=== PATIENT | male | born 1980 | race African-American/Black ===

== ENCOUNTER 2016-06-06 10:41 | Emergency (ER) | payer MEDICAID ==
[2016-06-06 10:50] VITALS: BP 136/70
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
== END 2016-06-06 11:26 | disposition home or self-care (01) ==
LOC: UCEAST 10:41
DX: L72.9 Follicular cyst of the skin and subcutaneous tissue, unspecified (principal); Z88.0 Allergy status to penicillin; F12.90 Cannabis use, unspecified, uncomplicated; F17.210 Nicotine dependence, cigarettes, uncomplicated
CPT/HCPCS: 99211; G0463

== ENCOUNTER 2016-11-13 12:16 | Emergency (ER) | payer MEDICAID, OTHER ==
[2016-11-13 12:20] VITALS: BP 126/88
--- NOTE | 2016-11-13 13:54 | UC ---
Back Pain HPI - HPI Summary HPI Summary: This is an otherwise healthy 36 yo male who presents with c/o back pain. Symptoms started 3 days ago and have become progressively worse. He does not recall an injury or other trauma. 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 No associated abd pain, n/v. No urinary symptoms. Some radiation of the pain down his R leg. No numbness, tingling or weakness. No incontinence. No h/o similar symptoms. He has been taking a large amount of NSAIDs. Pain has been interfering with his ability to sleep. - History of Current Complaint Chief Complaint: UCBackPain Stated Complaint: BACK PAIN - Allergies/Home Medications Allergies/Adverse Reactions: Allergies Allergy/AdvReac Type Severity Reaction Status Date / Time Penicillins Allergy Unknown Unknown Verified 03/17/12 04:33 Reaction Details PMH/Surg Hx/FS Hx/Imm Hx Previously Healthy: Yes Other History Of: Negative For: Anticoagulant Therapy - Surgical History Surgical History: None - Family History Known Family History: Positive: Hypertension - Social History Alcohol Use: Occasionally Substance Use Type: Marijuana Substance Use Comment - Amount & Last Used: daily Smoking Status (MU): Former Smoker Type: Cigarettes Review of Systems Constitutional: Negative Skin: Negative Eyes: Negative ENT: Negative Respiratory: Negative Cardiovascular: Negative Gastrointestinal: Negative Genitourinary: Negative Motor: Decreased ROM Neurovascular: Negative Musculoskeletal: Myalgia Neurological: Negative Psychological: Negative All Other Systems Reviewed And Are Negative: Yes Physical Exam Triage Information Reviewed: Yes Appearance: Pain Distress - mild Vital Signs: Initial Vital Signs Temp 99.5 F 11/13/16 12:18 Pulse 100 11/13/16 12:18 Resp 20 11/13/16 12:18 BP 126/88 11/13/16 12:18 Pulse Ox 100 11/13/16 12:18 Vital Signs Reviewed: Yes Respiratory Exam: Normal Respiratory: Positive: Chest non-tender, Lungs clear, Normal breath sounds. Negative: Crackles, Rhonchi, Wheezing Cardiovascular: Positive: RRR, No Murmur Abdomen Description: Positive: Nontender. Negative: Soft, CVA Tenderness (R), CVA Tenderness (L) Musculoskeletal: Positive: No Edema, Other: - TTP over R paraspinal musculature Neurological: Positive: Other: - strength 5/5, sensation intact Back Pain Course/Dx - Course Course Of Treatment: This is an otherwise healthy 36 yo male with c/o back pain without associated trauma. No neurologic deficits. Treat for back strain. - Differential Dx/Diagnosis Provider Diagnoses: Back strain Discharge - Discharge Plan Condition: Stable Disposition: HOME Prescriptions: Cyclobenzaprine TAB* [Flexeril 10 MG TAB*] 10 mg PO TID PRN #30 tab PRN Reason: muscle pain/spasm Hydrocodone-Acetaminophen [Vicodin 5-300 mg] 1 - 2 tab PO Q4H PRN #20 tab MDD 10 tabs PRN Reason: back pain Patient Education Materials: Low Back Strain (ED), Lower Back Exercises (ED) Forms: *Work Release Referrals: No Primary Care Phys,NOPCP [Primary Care Provider] - Additional Instructions: Activity: as tolerated Instructions: 1. Start gentle stretches 2. Use pain and muscle relaxant medications as directed (do not combine with alcohol) 3. Consider massage or chiropractor visit
== END 2016-11-13 13:50 | disposition home or self-care (01) ==
LOC: UCEAST 12:16
DX: S39.012A Strain of muscle, fascia and tendon of lower back, initial encounter (principal); Z87.891 Personal history of nicotine dependence
CPT/HCPCS: 81003; 99212; G0463

== ENCOUNTER 2017-06-25 20:44 | Emergency (ER) | payer OTHER ==
[2017-06-25 21:11] VITALS: BP 139/84
[2017-06-25] MEDS ORDERED: BSS OPTH.SOL* BTL ONE (21:16)
[2017-06-25] MEDS ORDERED: Tetracaine 0.5% OPTH.SOL 4 ML* 1 DROP BTL ONE (21:16)
[2017-06-25] MEDS ORDERED: Fluorescein Sod TOPICAL 0.6* 0.6 MG TEST OPHTHALMIC ONE (21:16)
[2017-06-25] MEDS ORDERED: Tetracaine 0.5% OPTH.SOL 4 ML* 1 DROP BTL LEFT EYE ONE (21:32)
[2017-06-25] MEDS ORDERED: Fluorescein Sodium TOPICAL* 1 MG TEST OPHTHALMIC ONE (21:33)
[2017-06-25] MEDS ORDERED: Tetanus-Diptheria Toxoids* 0.5 ML SYRINGE IM ONE (21:34)
[2017-06-25] MEDS ORDERED: Tetan/Diph/Pertus SYR(Tdap)* 0.5 ML SYR(BOOSTRIX) use SYR IM ONE ×2 (21:57→21:58)
[2017-06-25] MEDS ORDERED: Ciprofloxacin 0.3% OPTH.SOL* 2.5 ML BTL BOTH EYES ONE (22:09)
--- NOTE | 2017-06-25 22:38 | UC ---
Eye Complaint HPI - HPI Summary HPI Summary: 37 year old male here with FB sensation in eye. 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 He had his glasses on but reports it went to his eye around the glasses. No vision change. No other injury. Unknown last tetanus. - History of Current Complaint Chief Complaint: UCEye Stated Complaint: EYE COMPLAINT Time Seen by Provider: 06/25/17 21:17 Hx Obtained From: Patient Onset/Duration: Sudden Onset Timing: Constant Severity Initially: Mild Severity Currently: Mild Pain Intensity: 7 Location of Injury: Conjunctiva Character: Sharp Alleviating Factor(s): Nothing Associated Signs And Symptoms: Positive: Negative - Allergies/Home Medications Allergies/Adverse Reactions: Allergies Allergy/AdvReac Type Severity Reaction Status Date / Time Penicillins Allergy unk Verified 06/25/17 21:13 PMH/Surg Hx/FS Hx/Imm Hx Previously Healthy: No Other History Of: Negative For: Anticoagulant Therapy - Surgical History Surgical History: None - Family History Known Family History: Positive: Hypertension - Social History Alcohol Use: Occasionally Substance Use Type: Marijuana Substance Use Comment - Amount & Last Used: daily Smoking Status (MU): Former Smoker Type: Cigarettes Review of Systems Constitutional: Negative Skin: Negative Eyes: Negative ENT: Negative Respiratory: Negative Cardiovascular: Negative Gastrointestinal: Negative Genitourinary: Negative Motor: Negative Neurovascular: Negative Musculoskeletal: Negative Neurological: Negative Psychological: Negative All Other Systems Reviewed And Are Negative: Yes Physical Exam Triage Information Reviewed: Yes Appearance: Well-Appearing, No Pain Distress Vital Signs: Initial Vital Signs Temp 36.6 C 06/25/17 21:09 Pulse 97 06/25/17 21:09 Resp 16 06/25/17 21:09 BP 139/84 06/25/17 21:09 Pulse Ox 97 06/25/17 21:09 Vital Signs Reviewed: Yes Eyes: Positive: Conjunctiva Inflamed - bilateral eye injection FB visulaized over cornea of right eye with possible metal ring negtive slit lamp, Other: - 20 /20 on both eyes ENT Exam: Normal Neck exam: Normal Neurological Exam: Normal Psychological Exam: Normal Skin Exam: Normal Procedures - Eye Procedure Eye FB Removal: removal w/ cotton swab Eye Irrigated w/ Saline (ccs): 500 Antibiotic Ointment/Drps Admin: right eye Eye Complaint Course/Dx - Differential Dx/Diagnosis Differential Diagnosis/HQI/PQRI: Conjunctivitis, Corneal Abrasion, Penetrating Injury Provider Diagnoses: FB in eye. Removed with cotton swab. Both eyes irrigated and patient felt better. Since its a metal penetrating injury to the eye, ordered tetanus. Patient instructed to follow up with optho in the next 1-2 days. Opthalmic cipro given here and rx sent. Discharge - Discharge Plan Condition: Good Disposition: HOME Prescriptions: Ciprofloxacin 0.3% OPTH.NASIR* [Cipro 0.3% Opth*] 1 drop RIGHT EYE Q1H #1 btl Patient Education Materials: Corneal Abrasion (ED) Forms: *Work Release Referrals: No Primary Care Phys,NOPCP [Primary Care Provider] - Tyshawn Link MD [Medical Doctor] - Matty Forbes [Medical Doctor] - Additional Instructions: Instill 2 drops into affected eye every 15 minutes for the first 6 hours, then 2 drops into the affected eye every 30 minutes for the remainder of the first day. On day 2, instill 2 drops into the affected eye hourly. On days 3-14, instill 2 drops into affected eye every 4 hours. Treatment may continue after day 14 if re-epithelialization has not occurred.Follow up with an dry cleaning counter clerk in 2-3 days.
== END 2017-06-25 22:41 | disposition home or self-care (01) ==
LOC: UCEAST 20:44
DX: T15.01XA Foreign body in cornea, right eye, initial encounter (principal); X58.XXXA Exposure to other specified factors, initial encounter; Y93.89 Activity, other specified; Y92.9 Unspecified place or not applicable; Z23 Encounter for immunization; Z88.0 Allergy status to penicillin; Z87.891 Personal history of nicotine dependence
CPT/HCPCS: 65220; 90471; 90715; 99213; A9270-GY; G0463

== ENCOUNTER 2018-02-22 03:35 | Emergency (ER) | payer OTHER ==
[2018-02-22] MEDS ORDERED: Haloperidol INJ IV/IM* 5 MG/ML AMP IM ONE (03:39)
[2018-02-22] MEDS ORDERED: LORazepam INJ* 2 MG/ML 1 ML VIAL IM ONE (03:39)
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
[2018-02-22 09:32] VITALS: BP 124/79
== END 2018-02-22 09:32 | disposition home or self-care (01) ==
LOC: ED 03:35
DX: S51.811A Laceration without foreign body of right forearm, initial encounter (principal); W25.XXXA Contact with sharp glass, initial encounter; Y93.89 Activity, other specified; Y92.009 Unspecified place in unspecified non-institutional (private) residence as the place of occurrence of the external cause; Z88.0 Allergy status to penicillin; Z87.891 Personal history of nicotine dependence; F10.129 Alcohol abuse with intoxication, unspecified
CPT/HCPCS: 12002; 96372; 99283; J1630; J2060

== ENCOUNTER → 2018-02-24 18:26 | Emergency (ER) | payer OTHER ==
--- NOTE | 2018-02-24 19:18 | ED ---
Medical Screening - HPI Summary HPI Summary: 37-year-old male presents for working note today. He states that he had a laceration to his arm on Friday that was sutured here. He states he cannot work with it. He is right-handed. 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 He states that feels the areas tugging when tries to lift anything. He denies any fevers. no spreading Redness. - History of Current Complaint Chief Complaint: EDLacSutureRecheck Stated Complaint: RT ARM LAC Time Seen by Provider: 02/24/18 19:02 PMH/Surg Hx/FS Hx/Imm Hx Endocrine/Hematology History: Denies: Hx Anticoagulant Therapy, Hx Diabetes, Hx Thyroid Disease Cardiovascular History: Denies: Hx Hypertension, Hx Pacemaker/ICD Respiratory History: Denies: Hx Asthma, Hx Chronic Obstructive Pulmonary Disease (COPD) History: Denies: Hx Renal Disease Neurological History: Denies: Hx Dementia, Hx Seizures Psychiatric History: Denies: Hx Substance Abuse - Immunization History Date of Tetanus Vaccine: unk Date of Influenza Vaccine: unk Infectious Disease History: No Infectious Disease History: Denies: Hx Clostridium Difficile, Hx Hepatitis, Hx Human Immunodeficiency Virus (HIV), Hx of Known/Suspected MRSA, Hx Shingles, Hx Tuberculosis, Hx Known/ Suspected VRE, Hx Known/Suspected VRSA, History Other Infectious Disease, Traveled Outside the [place] in Last 30 Days - Family History Known Family History: Positive: Hypertension - Social History Alcohol Use: Occasionally Substance Use Type: Reports: Marijuana Substance Use Comment - Amount & Last Used: daily Hx Tobacco Use: Yes Smoking Status (MU): Former Smoker Type: Cigarettes Review of Systems Negative: Fever Negative: Chest Pain Negative: Shortness Of Breath Positive: Other - laceration All Other Systems Reviewed And Are Negative: Yes Physical Exam Triage Information Reviewed: Yes Vital Signs On Initial Exam: Initial Vitals Temp Pulse Resp BP Pulse Ox 98.3 F 71 20 129/78 97 02/24/18 18:55 02/24/18 18:55 02/24/18 18:55 02/24/18 18:55 02/24/18 18:55 Vital Signs Reviewed: Yes Appearance: Positive: Well-Appearing Skin: Positive: Warm, Dry, Other - healing laceration with sutures on right forearm, no evidence of dehiscence Head/Face: Positive: Normal Head/Face Inspection Eyes: Positive: Normal, Conjunctiva Clear ENT: Positive: Pharynx normal Respiratory/Lung Sounds: Positive: Clear to Auscultation, Breath Sounds Present Cardiovascular: Positive: Normal, RRR Musculoskeletal: Positive: Normal Neurological: Positive: Normal Psychiatric: Positive: Normal Diagnostics - Vital Signs Vital Signs Temp Pulse Resp BP Pulse Ox 02/24/18 18:55 98.3 F 71 20 129/78 97 - Laboratory Lab Statement: Any lab studies that have been ordered have been reviewed, and results considered in the medical decision making process. Course/Dx - Course Course Of Treatment: 37-year-old male presents for working note today. He states that he had a laceration to his arm on Friday that was sutured here. He states he cannot work with it. He is right-handed. 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 He states that feels the areas tugging when tries to lift anything. He denies any fevers. no spreading Redness. On exam has a healing laceration right forearm. gave work note. Told return if develop any signs or infection. Patient understands and agrees with plan. - Diagnoses Provider Diagnoses: Visit for wound check Discharge - Sign-Out/Discharge Documenting (check all that apply): Patient Departure - Discharge Plan Condition: Good Disposition: HOME Forms: *Work Release Referrals: No Primary Care Phys,NOPCP [Primary Care Provider] - - Billing Disposition and Condition Condition: GOOD Disposition: Home
[2018-02-24 19:32] VITALS: BP 131/75
== END | disposition home or self-care (01) ==
LOC: ED 18:26
DX: S41.111D Laceration without foreign body of right upper arm, subsequent encounter (principal); X58.XXXD Exposure to other specified factors, subsequent encounter
CPT/HCPCS: 99282

== ENCOUNTER 2018-03-04 09:03 | Emergency (ER) | payer SELFPAY ==
[2018-03-04 09:37] VITALS: BP 130/61
--- NOTE | 2018-03-04 10:51 | UC ---
HPI Wound/Suture Re-check - HPI Summary HPI Summary: 37 y/o male presents to the urgent care c/o pt states he had stitches to rt upper arm placed and [facility] and [facility] 6 removed but there are 3 still intact. pt was told that 1 is deep and she would not be able to remove it and he was sent here. - History Of Current Complaint Chief Complaint: UCSkin Stated Complaint: SUTURE REMOVAL Time Seen by Provider: 03/04/18 10:45 Hx Obtained From: Patient Pain Intensity: 1 - Allergies/Home Medications Allergies/Adverse Reactions: Allergies Allergy/AdvReac Type Severity Reaction Status Date / Time Penicillins Allergy unk Verified 03/04/18 09:37 PMH/Surg Hx/FS Hx/Imm Hx Other History Of: Negative For: Anticoagulant Therapy - Surgical History Surgical History: None - Family History Known Family History: Positive: Hypertension - Social History Alcohol Use: Weekly Substance Use Type: Marijuana Substance Use Comment - Amount & Last Used: daily Smoking Status (MU): Former Smoker Type: Cigarettes Physical Exam Vital Signs: Initial Vital Signs Temp 99.0 F 03/04/18 09:33 Pulse 99 03/04/18 09:33 Resp 18 03/04/18 09:33 BP 130/61 03/04/18 09:33 Pulse Ox 100 03/04/18 09:33 Course/Dx - Differential Dx - Laceration/Wound Differential Diagnoses: Cellulitis, Healing Wound, Suture Removal Provider Diagnoses: 1- suture removal s/p RT arm laceration Discharge - Discharge Plan Condition: Stable Disposition: HOME Prescriptions: Bacitracin OINTMENT* 1 applic TOPICAL BID #1 tube Sulfamethox/Trimethoprim DS* [Bactrim DS 800/160 TAB*] 1 tab PO BID #14 tab Patient Education Materials: Acute Wound Care (ED) Referrals: [facility] [Outside] Additional Instructions: 1-Please take full course of antibiotic to avoid resistance. 2- Keep wound clean and dry and avoid excessive movement w/ your arm 3-Take Ibuprofen or Tylenol PO q6-8hrs prn if you develop pain or swelling. 4- Deeper sutures appear to be absorbable, they will dissolve. If not improvement of symptoms please return to the urgent care for further management - Billing Disposition and Condition Condition: STABLE Disposition: Home
--- NOTE | 2018-03-05 08:46 | UC ---
Discharge - Sign-Out/Discharge Documenting (check all that apply): Post-Discharge Follow Up All imaging exams completed and their final reports reviewed: No Studies - Discharge Plan Condition: Stable Disposition: HOME Prescriptions: Bacitracin OINTMENT* 1 applic TOPICAL BID #1 tube Sulfamethox/Trimethoprim DS* [Bactrim DS 800/160 TAB*] 1 tab PO BID #14 tab Patient Education Materials: Acute Wound Care (ED) Forms: *Work Release Referrals: [facility] [Outside] Additional Instructions: 1-Please take full course of antibiotic to avoid resistance. 2- Keep wound clean and dry and avoid excessive movement w/ your arm 3-Take Ibuprofen or Tylenol PO q6-8hrs prn if you develop pain or swelling. 4- Deeper sutures appear to be absorbable, they will dissolve. If not improvement of symptoms please return to the urgent care for further management - Billing Disposition and Condition Condition: STABLE Disposition: Home
== END 2018-03-04 11:20 | disposition home or self-care (01) ==
LOC: UCEAST 09:03
DX: S41.111D Laceration without foreign body of right upper arm, subsequent encounter (principal); X58.XXXD Exposure to other specified factors, subsequent encounter; Z88.0 Allergy status to penicillin; Z87.891 Personal history of nicotine dependence
CPT/HCPCS: 99212; G0463